=== PATIENT | male | born 1975 | race Caucasian/White ===

== ENCOUNTER → 2023-09-22 | Outpatient (CLI) | payer BC ==
--- NOTE | 2023-09-23 08:31 | CT ---
EXAMINATION TYPE: CT brain wo con DATE OF EXAM: 09/22/2023 COMPARISON: HISTORY: h/o subdermal hematoma (08/06/23) CT DLP: [address] of the brain was performed. The ventricles, basal cisterns and sulci overlying the cerebral convexities demonstrate a normal appe arance. There is no evidence for intracranial hemorrhage or sulcal effacement. Intraparenchymal hemorrhage le ft temporal lobe have resolved. I do not see evidence for residual subdural hematoma this time. No mass effects are seen. Osseous calvarium is intact. If symptoms persist consider MRI as clinically warranted. IMPRESSION: 1. No acute intracranial process is seen at this time.
== END | disposition home or self-care (01) ==
LOC: RADCTMAIN 11:53
PROVIDERS: ATTEND Specialist
DX: S06.4X Epidural hemorrhage (principal); X58.XXXS Exposure to other specified factors, sequela
CPT/HCPCS: 70450